=== PATIENT | female | born 1960 | race Caucasian/White ===

== ENCOUNTER 2017-09-18 00:46 | Emergency (ER) | payer OTHER ==
[~2017-09-18] VITALS: Ht 157.5 cm; Wt 55.5 kg
[~2017-09-18 00:46] MED LIST: AMITRIPTYLINE H50 MG PO; AMLODIPINE BESY10 MG PO; AUGMENTIN875 MG PO; CIPRO500 MG PO; CITALOPRAM HBR20 MG PO; COMBIVENT200 INHALA IH; FLAGYL500 MG PO; KEFLEX500 MG PO; LIBRIUM25 MG PO; LORATADINE10 M2 PO; LORAZEPAM1 MG PO; MEDROL DOSEPAK4 MG PO; MELOXICAM15 MG PO; MIRTAZAPINE30 MG PO; OMEPRAZOLE20 M2 PO; OXCARBAZEPINE300 MG PO; PERCOCET 5/31 TABLET PO; THIAMINE HCL100 MG PO; VENTOLIN HFA18 GM IH; VITAMIN D35000 UNIT PO; ZITHROMAX Z-PA250 MG PO; ZOFRAN4 MG PO
[2017-09-18 01:47] LABS: HEMATOCRIT 32.1 % (36.0-46.0); HEMOGLOBIN 11.3 G/DL (11.9-15.5); MCH 36.6 PG (29.0-34.0); MCHC 35.2 G/DL (30.0-36.0); MCV 103.9 FL (83-99); RBC DIS.WIDTH-CV 15.2 % (11.8-14.6); RBC DIS.WIDTH-SD 57.4 % (39-53); RED BLOOD COUNT 3.09 M/uL (3.80-5.20); WHITE BLOOD COUNT 4.3 K/uL (4.1-10.2)
[2017-09-18 01:59] LABS: ALBUMIN 3.3 g/dL (3.2-4.8); CHLORIDE 109 mEq/L (99-109); POTASSIUM 3.7 mEq/L (3.7-5.4); SODIUM 140 mEq/L (136-147)
[2017-09-18 02:02] LABS: GLUCOSE 94 mg/dL (70-99); TOTAL PROTEIN 8.1 g/dL (6.4-8.3)
[2017-09-18 02:04] LABS: TOTAL BILIRUBIN 0.6 mg/dL (0.0-1.0)
[2017-09-18 02:05] LABS: ALKALINE PHOSPHATASE 209 IU/L (3-129); CREATININE 0.7 mg/dL (0.6-1.3); GFR ESTIMATE (CALCULATED) > 59 mL/min/; SERUM ETHYL ALCOHOL 258 mg/dL
[2017-09-18 02:06] LABS: UREA NITROGEN (BUN) 15 mg/dL (9-23)
[2017-09-18 02:07] LABS: AST (GOT) 104 IU/L (2-34)
[2017-09-18 02:08] LABS: ALT (GPT) 79 IU/L (3-49)
[2017-09-18 02:09] LABS: LIPASE 56 U/L (1.0-51.0)
[2017-09-18 02:42] LABS: TROP-I INTERPRETATION NEGATIVE; TROPONIN-I < 0.01 ng/mL (0.0-0.30)
[2017-09-18 02:47] LABS: PLAT.SUFFICIENCY DECREASED; PLATELET COUNT 41 K/uL (156-360)
[2017-09-18 03:49] LABS: TROP-I INTERPRETATION NEGATIVE; TROPONIN-I < 0.01 ng/mL (0.0-0.30)
[2017-09-18 04:26] VITALS: BP 138/70
== END 2017-09-18 04:27 | disposition home or self-care (01) ==
LOC: EME 00:46
PROVIDERS: Emergency Medicine
DX: R07.9 Chest pain, unspecified (principal); S20.212A Contusion of left front wall of thorax, initial encounter; F10.129 Alcohol abuse with intoxication, unspecified; W19.XXXA Unspecified fall, initial encounter; Y90.8 Blood alcohol level of 240 mg/100 ml or more; F32.9 Major depressive disorder, single episode, unspecified; F41.9 Anxiety disorder, unspecified; B19.20 Unspecified viral hepatitis C without hepatic coma; J44.9 Chronic obstructive pulmonary disease, unspecified; Z88.5 Allergy status to narcotic agent; F17.200 Nicotine dependence, unspecified, uncomplicated
CPT/HCPCS: 71046; 80053; 83690; 84484; 85027; 93005; 99281; 99284; G0480